=== PATIENT | male | born 1990 ===

== ENCOUNTER 2017-04-23 15:24 | Emergency (ER) | payer OTHER ==
[2017-04-23 15:24] VITALS: BMI 29.5
[2017-04-23 15:34] VITALS: TEMP 99.4
[2017-04-23 15:37] VITALS: RESP 18
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
--- NOTE | 2017-04-23 18:12 | RAD ---
PROCEDURE: Right Hand Radiographs. HISTORY: Right hand pain. COMPARISON: None. FINDINGS: BONES: Fracture proximal aspect 2nd metacarpal. Fracture fragments are anatomically aligned. JOINTS: Normal. No osteoarthritic changes. SOFT TISSUES: Soft tissue swelling attests to the acuity of the fracture. OTHER FINDINGS: None. IMPRESSION: Acute fracture 3rd base of 2nd metacarpal.
[2017-04-23 18:18] VITALS: BP 125/71; PULSE 71; O2SAT 100
== END 2017-04-23 18:36 | disposition home or self-care (01) ==
LOC: ED 15:24
DX: S62.390A Other fracture of second metacarpal bone, right hand, initial encounter for closed fracture (principal); V29.9XXA Motorcycle rider (driver) (passenger) injured in unspecified traffic accident, initial encounter; Y92.410 Unspecified street and highway as the place of occurrence of the external cause; R51 Headache
CPT/HCPCS: 29260; 70450; 73130; 96372; 99285; J1885